=== PATIENT | female | born 1930 | race Caucasian/White ===

== ENCOUNTER 2016-09-19 16:14 | Emergency (ER) | payer OTHER, BC ==
[~2016-09-19] VITALS: Ht 165.1 cm; Wt 61.2 kg
[~2016-09-19 16:14] MED LIST: ACETAMINOPHEN325 M1 PO; ASPIRIN PO; BACTRIM DS TAB1 EACH PO; CELEXA40 MG PO; CIPRO500 MG PO; COLACE100 MG PO; CORDARONE PO; CORDARONE200 MG PO; COUMADIN 2.5MG2.5 M1 PO; COUMADIN 3 MG TA3 MG PO; COZAAR 25MG TAB25 M1 PO; COZAAR 50 MG TA50 M2 PO; DARVOCET-N 1001 EACH PO; DILTIAZEM ER240 M1 PO; DYAZIDE 37.5-21 EACH PO; ENOXAPARIN100 MG/1 M SUBQ; ERYTHROMYCIN E3.5 G3 OPHTHALMIC; FENTANYL PA12 MCG/H1 TP; FERROUS SULFAT325 M1 PO; FISH OIL 1,001000 M1 PO; HYDROCODONE-AP1 EAC6 PO; LIDODERM 5%1 PATC1 TOP; LIPITOR20 MG PO; LISINOPRIL10 MG PO; LOPRESSOR PO; MULTIVITAMINS PO; NITROSTAT0.4 MG SUBLING; NORCO 5-325 TA1 EACH PO; NORFLEX100 MG PO; OTHER MEDICATIONS; OXYCOTIN; PACERONE 200 M200 M1 PO; PERCOCET 5-3251 EACH PO; PROCHLORPERAZINE5 M1 PO; ST. JOSEPH ASPI81 M1 PO; TRAMADOL 50 MG50 MG; TRAMADOL 50 MG50 MG PO; TYLENOL325 MG PO; VITAMIN D2000 UNIT PO; VITAMIN D31000 UNI2 PO; ZANTAC 150MG T150 M1 PO
== END 2016-09-19 20:20 | disposition home or self-care (01) ==
LOC: ER 16:14
DX: S01.01XA Laceration without foreign body of scalp, initial encounter (principal); I48.91 Unspecified atrial fibrillation; D45 Polycythemia vera; I10 Essential (primary) hypertension; E78.5 Hyperlipidemia, unspecified; N18.9 Chronic kidney disease, unspecified; I12.9 Hypertensive chronic kidney disease with stage 1 through stage 4 chronic kidney disease, or unspecified chronic kidney disease; Z85.51 Personal history of malignant neoplasm of bladder; Z95.1 Presence of aortocoronary bypass graft; W22.8XXA Striking against or struck by other objects, initial encounter; Y93.89 Activity, other specified; Y92.89 Other specified places as the place of occurrence of the external cause; Y99.9 Unspecified external cause status

== ENCOUNTER → 2017-04-20 | Outpatient (CLI) | payer OTHER, BC | LOC: RAD 14:18 | DX: Z79.899 Other long term (current) drug therapy (principal); Z87.81 Personal history of (healed) traumatic fracture; Z95.2 Presence of prosthetic heart valve ==

== ENCOUNTER → 2017-12-04 | Outpatient (CLI) | payer OTHER, BC ==
[~2017-12-04] VITALS: Ht 165.1 cm; Wt 66.6 kg
[~2017-12-04] MED LIST changes: +CARDIZEM CD180 MG PO; -CORDARONE200 MG PO; +FISH OIL 1,001000 M2 PO; +LOSARTAN-HCTZ1 EACH PO; +MEDROLDOSEPACK PO; +NEURONTIN 300300 M1 PO; +OMEPRAZOLE 20 M20 M1 PO; +RANITIDINE 150150 M1 PO
--- NOTE | ~2017-12-04 | HPC ---
[facility] [place] [address] PAIN MANAGEMENT CONSULTATION Name: YANICK HURLEY Room #: REG [facility] Gila.#: [id number] Admission: 12/04/17 Attend Phys: Neftali Blanchard MD Discharge: Date of : [birth year] Report #: [id number] THIS REPORT FOR: //name// CC: Neftali Dukes DATE OF SERVICE: 12/04/2017 FOLLOWUP COMPLAINT: "About 3 weeks ago, I was pulling a bedsheet and felt some cracking in my back." FOLLOWUP HISTORY: The patient is an 87-year-old female who has been seen in the pain clinic in the past by Dr. Rupesh Paez. The patient was seen in 2015. States that she had a compression fracture. She was treated with use of a TLSO brace. Continues to wear it as needed at this juncture. She states that she was making her bed about 3 weeks ago. She was putting on a sheet. Notes some discomfort in her back and continues to have some pain and discomfort in the low back area, mainly on her right side. She describes it as dull, aching, throbbing, sharp, stabbing and rates as a 6-7. It improves somewhat with use of heat and medications. She has noticed sometimes that the pain is exacerbated by lying down with activities, bending in a certain way, going from a sitting to a standing position. At this juncture, she would like to consider a conservative approach. She did try steroids at the last episode and found that was helpful. She would like to try steroids and if the pain continues, would consider an injection to the affected area. ALLERGIES: METOPROLOL, SULFA, CODEINE, HYDROCODONE. CURRENT MEDICATIONS: Coumadin 3 mg daily; Lipitor 20 mg, total of 40 mg; amiodarone 200 mg, 400 mg daily; 81 mg aspirin; losartan/hydrochlorothiazide 50 mg/12.5; diltiazem 180 mg; fish oil 1000 mg; omeprazole 20 mg; ranitidine 150 mg; gabapentin 300 mg; Ultram 50 mg. PAST MEDICAL HISTORY: 1. Polycythemia vera. 2. Coronary artery disease. 3. Dyslipidemia. 4. Seasonal allergies. 5. History of bladder cancer. 6. History of T12 compression fracture. 7. Atrial fibrillation. 8. History of anemia. 9. Sleep apnea, has used CPAP machine. PAST SURGICAL HISTORY: 1. Excision of bladder cancer. [facility] [address] [place] [address] PAIN MANAGEMENT CONSULTATION Name: YANICK HURLEY Room #: REG CLI [facility]#: [id number] Admission: 12/04/17 Attend Phys: Neftali Blanchard MD Discharge: Date of : [birth year] Report #: [id number] 2. Coronary artery bypass surgery. 3. Bilateral cataract surgery. 4. Surgical removal of cancer from the bladder. SOCIAL HISTORY: She is retired, has not worked since 1998. REVIEW OF SYSTEMS: Generally in good health, fatigue, weakness, wears glasses, hearing loss, heart trouble, shortness of breath with lying flat, polycythemia, lightheadedness, and dizziness. PAIN CLINIC ASSESSMENT: 1. The patient states that she has not been treated for rheumatoid arthritis or osteoarthritis. 2. Height 5 feet 5 inches, weight 146 pounds, BMI is 24. 3. Vital signs: Blood pressure 150/68, pulse 72, respiratory rate 18, room air saturation 97%. 4. Pain intensity 6-7. 5. Fall risk: The patient has not fallen in the last 3 months. 6. Blood thinner: The patient is on Coumadin. 7. History of hypertension: The patient has been treated for hypertension. 8. Opioid medications greater than 6 weeks: The patient is using tramadol to help control her pain. 9. Risk assessment tool. 10. Functional assessment tool. 11. Recreational drug use: The patient denies use of recreational drugs. 12. Tobacco: She is a former smoker, does not smoke for many years. 13. Alcohol: Denies frequent use of alcoholic beverages. PHYSICAL EXAMINATION: GENERAL: The patient is a well-developed, well-nourished white female. Appears her stated age. She is alert and oriented x 3. Affect is appropriate. HEENT: Normocephalic, atraumatic. Extraocular eye muscles intact without JVD. LUNGS: Clear to auscultation. No rhonchi or rales. CARDIOVASCULAR: History of atrial fibrillation. EXTREMITIES: The major muscle groups strength is judged to be 4/5 for the upper extremities and lower extremities. The patient does have some kyphosis and is wearing a TLSO brace in place. IMPRESSION: 1. Axial back pain. The patient notes some pain and discomfort after moving and pulling a sheet while making a bed. 2. Myofascial pain. 3. Deconditioning. 4. Chronic intractable pain. 5. 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 [facility] [address] [place] [address] PAIN MANAGEMENT CONSULTATION Name: YANICK HURLEY Room #: REG [facility]#: [id number] Admission: 12/04/17 Attend Phys: Neftali Blanchard MD Discharge: Date of : 07/[birth year] Report #: [id number] 5. Atrial fibrillation. 6. History of bladder cancer. 7. Sleep apnea, has used CPAP machine. 8. Bilateral cataract surgery. RECOMMENDATIONS: We discussed treatment options with the patient and her son. At this juncture, we will try a conservative approach. She will take a Medrol Dosepak in the interim. She has only been off her Coumadin for about 2 days. If she finds that the pain improves with use of the Medrol Dosepak, she will resume use of her Coumadin. If the pain continues to be problematic over the weekend, she will return to the pain clinic in about 5 days, at which time we will consider an epidural injection. We may consider use of Gralise. This is a gabapentin type medication, which is oftentimes better tolerated than Neurontin itself. The patient states that the Neurontin is helpful, but sometimes causes some problems with her sensorium. We would like to thank you for letting us participate in her care. We hope she continues to improve. By: [id number] Neftali Blanchard MD /thomas
[2017-12-04 13:40] VITALS: BP 150/68
== END ==
LOC: PAIN 06:53
DX: M54.5 Low back pain (principal); G89.4 Chronic pain syndrome; I25.10 Atherosclerotic heart disease of native coronary artery without angina pectoris; M79.1 Myalgia; I48.91 Unspecified atrial fibrillation; E78.5 Hyperlipidemia, unspecified

== ENCOUNTER → 2017-12-09 | Outpatient (CLI) | payer OTHER, BC ==
[~2017-12-09] VITALS: Ht 165.1 cm; Wt 66.3 kg
--- NOTE | ~2017-12-09 | HPC ---
[facility] [place] [address] [place] [address] PAIN MANAGEMENT CONSULTATION Name: YANICK HURLEY Room #: REG [facility] Gila.#: [id number] Admission: 12/09/17 Attend Phys: Neftali Blanchard MD Discharge: Date of : [birth year] Report #: [id number] THIS REPORT FOR: //name// CC: Neftali Dukes FOLLOWUP HISTORY: The patient is an 87-year-old female who has been seen in the pain clinic because of back pain. She states that she hurt her back a few weeks ago while pulling on the bedsheet. She returns today indicating that her pain in the lower portion of her back is mainly on the right side. She describes it as dull, aching, throbbing, sharp and stabbing. She rates it as a 6-7 at this point. It is exacerbated when she is lying down with activities, bending in certain areas going from a sitting to a standing position. She has tried heat and medication and found some benefit from these. Still finds this is problematic. She had tried a conservative approach. She did have some improvement after steroids were provided. At this juncture, she would like to move from the conservative approach to possibility of an injection. She did undergo use of a Medrol Dosepak in the interim. She has been off her Coumadin. She has returned with possibility of injection. ALLERGIES: METOPROLOL, SULFA, CODEINE, HYDROCODONE. CURRENT MEDICATIONS: Coumadin 3 mg daily, Lipitor 20 mg for a total of 40 mg; amiodarone 200 mg, 400 mg daily; aspirin 81 mg, losartan/hydrochlorothiazide 50/12.5, diltiazem 180 mg, fish oil 1000 mg, omeprazole 20 mg, ranitidine 150 mg, gabapentin 300 mg, Ultram 50 mg. PAST MEDICAL HISTORY: 1. Polycythemia vera. 2. Coronary artery disease. 3. Dyslipidemia. 4. Seasonal allergies. 5. History of bladder cancer. 6. History of T12 compression fracture. 7. Atrial fibrillation. 8. History of anemia. 9. Sleep apnea and uses CPAP. PAIN CLINIC ASSESSMENT: 1. 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 2. Height 5 feet 5 inches. Weight 146 pounds, BMI is 24. 3. Vital signs: Blood pressure 147/76, pulse 70, respiratory rate 16, room air saturation 97%. 4. Pain intensity 6-7/10. 5. Fall risk. The patient has not fallen, but does use some assistance with walking. 6. Blood thinner. [place] [address] PAIN MANAGEMENT CONSULTATION Name: YANICK HURLEY [id number] Admission: 12/09/17 Attend Phys: Neftali Blanchard MD Discharge: Date of : [birth year] Report #: [id number] 7. History of hypertension. The patient has been treated for hypertension. 8. Opioid greater than 6 weeks. The patient is using some opioid medication to help with her pain. 9. Risk assessment tool. 10. Functional assessment tool. 11. Recreational drug use. The patient denies use of recreational drugs. 12. Tobacco: The patient is a former smoker. 13. Alcohol: The patient denies use of alcoholic beverages at this juncture. PHYSICAL EXAMINATION: GENERAL: The patient is a well-developed female. She appears her stated age. She is alert and oriented x 3. Her affect is appropriate. HEENT: Normocephalic, atraumatic. Extraocular eye muscles are intact. Sclerae are nonicteric. LUNGS: Clear to auscultation. No rhonchi or rales. CARDIOVASCULAR: History of atrial fibrillation. EXTREMITIES: The patient has some weakness in the muscle groups, most judged to be 4/5 for the upper extremity as well as the lower extremity. The patient has pain and discomfort in the low back area. She has some kyphosis and is wearing a TLSO brace. ____. IMPRESSION: 1. Low back pain with myofascial pain in the posterior superior iliac spine areas. Protime 1.3. 2. Polycythemia vera. 3. Coronary artery disease. 4. Dyslipidemia. 5. Seasonal allergies. 6. History of bladder cancer. 7. History of T12 compression fracture. 8. Atrial fibrillation. 9. History of anemia. 10. Sleep apnea with use of CPAP machine. RECOMMENDATIONS: We discussed treatment options with the patient. At this juncture, we will proceed with a trigger point injection to the lower back area. Palpation in the area of the posterior superior iliac spine does reproduce the component of the patient's pain. PROCEDURE NOTE: ____ after the patient was placed in the sitting position was determined. Her back was sterilely prepped with a Betadine solution and allowed to dry. A 20-gauge spinal needle was then advanced into the area of the right side of her low back. This was in the area of the gluteus jose and latissimus dorsi. The patient tolerated the procedure well. Pain decreased to 0 at the time of discharge. She will follow up in the future as needed. She will resume use of her Coumadin. [address] [address] PAIN MANAGEMENT CONSULTATION Name: YANICK HURLEY Room #: REG [facility]#: [id number] Admission: 12/09/17 Attend Phys: Neftali Blanchard MD Discharge: Date of : [birth year] Report #: [id number] We would like to thank you for letting us participate in her care. We hope she continues to improve. By: [id number] Neftali Blanchard MD /thomas
[2017-12-09 14:23] LABS: INR 1.3
[2017-12-09 15:13] VITALS: BP 147/76
== END | disposition home or self-care (01) ==
LOC: PAIN 06:29
PROVIDERS: Anesthesiology Pain Medicine
DX: M79.1 Myalgia (principal); M54.5 Low back pain; I25.10 Atherosclerotic heart disease of native coronary artery without angina pectoris; E78.5 Hyperlipidemia, unspecified; I48.91 Unspecified atrial fibrillation; G47.33 Obstructive sleep apnea (adult) (pediatric); D45 Polycythemia vera; Z85.51 Personal history of malignant neoplasm of bladder; Z87.311 Personal history of (healed) other pathological fracture; Z79.899 Other long term (current) drug therapy; Z79.01 Long term (current) use of anticoagulants; Z98.890 Other specified postprocedural states; Z88.2 Allergy status to sulfonamides; Z88.6 Allergy status to analgesic agent; Z88.8 Allergy status to other drugs, medicaments and biological substances